=== PATIENT | male | born 1980 | race African-American/Black ===

== ENCOUNTER 2018-11-17 12:28 | Emergency (ER) | payer SELFPAY ==
[~2018-11-17] VITALS: Ht 180.3 cm; Wt 55.3 kg
[2018-11-17 12:41] VITALS: BP_SYST 160
--- NOTE | 2018-11-17 12:49 | NUR ---
Patient to ER bed 4 to gown for evaluation. Side rails up. Report given to Funmi OLIVEROS.
--- NOTE | 2018-11-17 12:50 | NUR ---
pt reports having black stools intermittently of the past 3 weeks. pt also reports having LUQ pain for the past month.
--- NOTE | 2018-11-17 13:14 | NUR ---
ER at bedside examining patient.
[2018-11-17 13:40] LABS: BASOPHILS # (AUTO) 0.1 K/uL (0.0-0.2); BASOPHILS % (AUTO) 1.1 % (0.0-2.0); EOSINOPHILS # (AUTO) 0.2 K/uL (0.0-0.4); EOSINOPHILS % (AUTO) 2.1 % (0.0-4.0); HEMATOCRIT 38.2 % (36-54); HEMOGLOBIN 13.4 g/dL (14.0-18.0); LYMPHOCYTES # (AUTO) 1.9 K/uL (1.0-5.5); LYMPHOCYTES % (AUTO) 25.3 % (20.5-51.5); MEAN CORPUSCULAR HEMOGLOBIN 34 pg (27-31); MEAN CORPUSCULAR HGB CONC 35 % (32-36); MEAN CORPUSCULAR VOLUME 96 fL (79.0-98.0); MONOCYTES % (AUTO) 13.3 % (1.7-9.3); NEUTROPHILS # (AUTO) 4.3 K/uL (1.8-7.7); NEUTROPHILS % (AUTO) 58.2 % (40.0-70.0); PLATELET COUNT (AUTO) 236 K/uL (130-430); RED BLOOD CELL COUNT(AUTO) 3.96 MIL/uL (4.2-6.2); WHITE BLOOD COUNT (AUTO) 7.4 K/uL (4.8-10.8)
--- NOTE | 2018-11-17 13:44 | NUR ---
pt is going to x-ray accompanied by staff.
--- NOTE | 2018-11-17 13:52 | NUR ---
pt returned back to the unit from x-ray.
[2018-11-17 14:08] LABS: CALCIUM 8.4 mg/dL (8.4-11.0); CREATININE 0.9 mg/dL (0.55-1.30); POTASSIUM 3.4 mmol/L (3.5-5.1)
[2018-11-17 14:13] LABS: TOTAL BILIRUBIN 0.5 mg/dL (0.0-1.0)
[2018-11-17 15:11] VITALS: BP_SYST 147
--- NOTE | 2018-11-17 15:12 | NUR ---
Patient given written and verbal discharge instructions and verbalizes understanding. ER MD discussed with patient the results and treatment provided. Patient in stable condition. ID arm band removed. IV catheter removed intact and dressing applied, no active bleeding. Rx of Lomitil and Bactrim given. Patient educated on pain management and to follow up with PMD. Pain Scale 3/10.Opportunity for questions provided and answered. Medication side effect fact sheet provided.
== END 2018-11-17 15:11 | disposition home or self-care (01) ==
LOC: SED 12:28
DX: K52.9 Noninfective gastroenteritis and colitis, unspecified (principal); F17.210 Nicotine dependence, cigarettes, uncomplicated
CPT/HCPCS: 36415; 74021; 80053; 83690-TC; 85025; 99284